=== PATIENT | male | born 1985 | race Caucasian/White ===

== ENCOUNTER 2018-03-10 12:54 | Emergency (ER) | payer OTHER ==
[~2018-03-10] VITALS: Ht 175.3 cm; Wt 90.7 kg
[2018-03-10] MEDS ORDERED: NAPROXEN 500 MG TABLET PO STA (13:19)
[2018-03-10 13:20] VITALS: BP 132/67
[2018-03-10] MEDS ORDERED: HYDROcodone/APAP 5/325MG 1 TAB TABLET PO ONE (13:30)
--- NOTE | 2018-03-10 13:32 | PHYS DOC ---
Past Medical History Past Medical History: No Pertinent History Past Surgical History: No Surgical History Smoking: Cigarettes, 1 Pack Per Day Alcohol Use: Rarely Drug Use: None Adult General Chief Complaint Chief Complaint: ANKLE PROBLEM HPI HPI Patient is a 32 year old male who presents to the emergency department with complaints of right ankle pain and swelling since rolling his ankle while at work yesterday. Patient reports limited range of motion of right ankle and states that there is increased pain with weightbearing. He states he has not taken anything for relief of his discomfort at this time. Patient denies any numbness of his foot he states there is pressure in his lateral ankle and then when he bears weight the pain becomes severe. Currently he rates his pain a 8 out of 10 on the pain scale. Patient states he is a smoker, he denies any other health problems. Review of Systems Review of Systems Musculoskeletal: See HPI Integument: Denies rash or skin lesions [] Neurologic: Denies focal weakness or sensory changes [] All other systems were reviewed and found to be within normal limits, except as documented in this note. Current Medications Current Medications Current Medications Medications (Trade) Dose Ordered Sig/Darrick Start Time Stop Time Status Last Admin Dose Admin Acetaminophen/ Hydrocodone Bitart (Lortab 5/325) 1 tab 1X ONCE 03/10/18 13:30 03/10/18 13:31 DC 03/10/18 13:42 1 TAB Naproxen (Naprosyn) 500 mg 1X STAT 03/10/18 13:19 03/10/18 13:21 DC 03/10/18 13:43 500 MG Allergies Allergies Allergies Coded Allergies Type Severity Reaction Last Updated Verified sulfamethoxazole Allergy Intermediate 03/10/18 Yes trimethoprim Allergy Intermediate 03/10/18 Yes Physical Exam Physical Exam Constitutional: Well developed, well nourished, no acute distress, non-toxic appearance. [] HENT: Normocephalic, atraumatic, bilateral external ears normal, nose normal. [ ] Eyes: conjunctiva normal, no discharge. [] Neck: Normal range of motion Lungs & Thorax: Respirations even and unlabored Skin: Warm, dry, no erythema, no rash. [] Extremities: Right lateral ankle tenderness, no cyanosis, no clubbing, decreased ROM right ankle, 2+ edema right lateral ankle. [] Neurologic: Alert and oriented X 3, normal motor function, normal sensory function, no focal deficits noted. [] Psychologic: Affect normal, judgement normal, mood normal. [] Current Patient Data Vital Signs Vital Signs Date Time Temp Pulse Resp B/P (MAP) Pulse Ox O2 Delivery O2 Flow Rate FiO2 03/10/18 13:20 98.4 89 18 132/67 (88) 97 Room Air 98.4 EKG EKG [] Radiology/Procedures Radiology/Procedures PROCEDURE: ANKLE RIGHT 3V 3 view right ankle 03/10/2018 CLINICAL INDICATION: Right ankle pain and swelling after work injury. COMPARISON: None. FINDINGS: No acute fracture or traumatic malalignment. There is a small ankle joint effusion. No ankle joint space widening. Ankle mortise and talar dome maintained. Subtalar articulations are intact. Minimal infracalcaneal sprain. IMPRESSION: 1. No acute osseous abnormality. 2. Small ankle joint effusion.[] Course & Med Decision Making Course & Med Decision Making Pertinent Labs and Imaging studies reviewed. (See chart for details) [] Dragon Disclaimer Dragon Disclaimer This electronic medical record was generated, in whole or in part, using a voice recognition dictation system. Departure Departure Impression: Primary Impression: Right ankle pain Additional Impressions: Right ankle sprain Right ankle effusion Disposition: 01 HOME, SELF-CARE Condition: STABLE Referrals: NO PCP (PCP) ANA HILLIARD II, MD Patient Instructions: Ankle Sprain, [id number] Additional Instructions: Fill prescription(s) and use as directed. Recommend application of ice, elevation, and rest of affected extremity. Wear the splint that was placed until follow up appointment. Return to the ER if your symptoms worsen. Scripts Hydrocodone Bit/Acetaminophen (HYDROCODONE-APAP 5-325 ) 1 Each Tablet 1 TAB PO PRN Q6HRS PRN for PAIN for 3 Days, #12 TAB 0 Refills Prov: DONI SAHNI [employer] 03/10/18 Splinting Splinting : Location: R ankle Pre-Made Type: velcro (air cast with lazaro wrap) Pre-Proc Neuro Vasc Exam: normal Post-Proc Neuro Vasc Exam: normal, unchanged from pre-exam Problem Qualifiers Primary Impression: Right ankle pain Chronicity: acute Qualified Codes: M25.571 - Pain in right ankle and joints of right foot Additional Impressions: Right ankle sprain Encounter type: initial encounter Involved ligament of ankle: unspecified ligament Qualified Codes: S93.401A - Sprain of unspecified ligament of right ankle, initial encounter DONI SAHNI [employer] Mar 10, 2018 13:32
--- NOTE | 2018-03-10 14:20 | RAD ---
3 view right ankle 03/10/2018 CLINICAL INDICATION: Right ankle pain and swelling after work injury. COMPARISON: None. FINDINGS: No acute fracture or traumatic malalignment. There is a small ankle joint effusion. No ankle joint space widening. Ankle mortise and talar dome maintained. Subtalar articulations are intact. Minimal infracalcaneal sprain. IMPRESSION: 1. No acute osseous abnormality. 2. Small ankle joint effusion. Electronically signed by: Nino Corona MD (03/10/2018 2:16 PM) [id number]
[2018-03-10] MEDS ORDERED: HYDR-2761 PO (14:31)
== END 2018-03-10 14:47 | disposition home or self-care (01) ==
LOC: ER 12:54
DX: S93.401A Sprain of unspecified ligament of right ankle, initial encounter (principal); F17.210 Nicotine dependence, cigarettes, uncomplicated; Z88.2 Allergy status to sulfonamides; Z88.1 Allergy status to other antibiotic agents; X50.9XXA Other and unspecified overexertion or strenuous movements or postures, initial encounter; Y93.89 Activity, other specified; Y92.89 Other specified places as the place of occurrence of the external cause; Y99.8 Other external cause status
CPT/HCPCS: 29515; 73610; 99283; L4350